=== PATIENT | male | born 1945 | race Caucasian/White ===

== ENCOUNTER 2020-07-02 08:18 | Day surgery (SDC) | payer MEDICARE, OTHER ==
[2020-06-25 15:13] LABS: BASOPHILS # (AUTO) 0.1 X10'3 (0-0.2); BASOPHILS % (AUTO) 0.8 % (0-1); EOSINOPHILS # (AUTO) 0.3 X10'3 (0-0.9); EOSINOPHILS % (AUTO) 3.8 % (0-6); LYMPHOCYTES # (AUTO) 1.9 X10'3 (1.1-4.8); LYMPHOCYTES % (AUTO) 24.7 % (21-51); MEAN CORPUSCULAR HEMOGLOBIN 28.8 PG (27.0-31.0); MEAN CORPUSCULAR HGB CONC 33.4 g/dL (33.0-36.5); MEAN CORPUSCULAR VOLUME 86.3 FL (78-98); MEAN PLATELET VOLUME 9.2 FL (7.4-10.4); MONOCYTES # (AUTO) 0.7 X10'3 (0-0.9); MONOCYTES % (AUTO) 9.1 % (2-12); NEUTROPHILS # (AUTO) 4.8 X10'3 (1.8-7.7); NEUTROPHILS % (AUTO) 61.6 % (42-75); PRE OP HEMATOCRIT 40.7 % (42.0-52.0); PRE OP HEMOGLOBIN 13.6 g/dL (14.0-17.9); PRE OP PLATELET COUNT 183 X10'3 (140-440); RED BLOOD COUNT 4.71 X10'6 (4.70-6.10); RED CELL DISTRIBUTION WIDTH 14.2 % (11.5-14.5)
[2020-06-25 15:28] LABS: ALBUMIN 3.4 G/DL (3.4-5.0); ALKALINE PHOSPHATASE 56 IU/L (46-116); BLOOD UREA NITROGEN 16 MG/DL (7-18); BUN/CREATININE RATIO 15.5 (5.4-32.0); CALCIUM 8.7 MG/DL (8.5-10.1); CHLORIDE 104 MMOL/L (99-107); CREATININE 1.03 MG/DL (0.60-1.10); PRE OP ALT 22 U/L (30-65); PRE OP ANION GAP 8 (8-16); PRE OP AST 25 U/L (10-37); PRE OP BILIRUB, TOTAL 0.4 MG/DL (0.0-1.0); PRE OP GLUCOSE 109 MG/DL (70-104); PRE OP POTASSIUM 3.9 MMOL/L (3.4-5.1); PRE OP SODIUM 139 MMOL/L (135-145); TOTAL CARBON DIOXIDE 27.4 MMOL/L (24-32); TOTAL PROTEIN 6.9 G/DL (6.4-8.2); eGFR 71 ML/MIN
[~2020-07-02] VITALS: Ht 175.3 cm; Wt 96.2 kg
[~2020-07-02 08:18] MED LIST: ACET-1025 PO; ATOR20TA66 PO; BUPIVAcaine/PF 2.5mg/ml (0.25%) 10ml vial ONE; BUPR300T53 PO; CARB15DR EACHEYE; CHOL10008 PO; ESCI10TA PO; LIDOcaine 0.5% (5mg/ml) 50ml vial ONE; LOSA25TA96 PO; MULT-570 PO; SUMA100T16 PO; TRAM50TA2 PO; TRAZ-251 PO; WARF-65 PO; WARF1TAB83 PO; ceFAZolin 2gm in dextrose, iso 50 ML IV ONE; famotidine 20mg tablet PO ONE; ringers solution, lacted 1,000 ML IV SCH
[2020-07-02 08:40] VITALS: BP 127/74
[2020-07-02] MEDS ORDERED: ringers solution, lacted 1,000 ML IV SCH (10:01)
[2020-07-02] MEDS ORDERED: meperidine/PF 25mg/ml syringe IV PRN ×3 (10:05)
[2020-07-02] MEDS ORDERED: morphine 2 MG/ML inj. syringe IV PRN (10:05)
[2020-07-02] MEDS ORDERED: proCHLORperazine 10 MG/2 ml inj IV PRN (10:05)
[2020-07-02] MEDS ORDERED: ondansetron/PF 4mg/2ml inj IV PRN (10:05)
[2020-07-02] MEDS ORDERED: morphine 4 MG/ML inj SYRINge IV PRN (10:05)
[2020-07-02] MEDS ORDERED: fentaNYL/PF 50MCG/1 ML 2ML syringe ONE (10:23)
[2020-07-02] MEDS ORDERED: midazolam 2 mg/2 ml injection ONE (10:23)
[2020-07-02] MEDS ORDERED: propofol inj 20 ML IV ONE (10:25)
[2020-07-02 10:49] VITALS: BP 116/66
--- NOTE | 2020-07-02 10:49 | NUR ---
Received from OR via [facility] , accompanied by Anesthesiologist ANTONINA and report given by Anesthesiolgist. PATIENT WITH WRIST DRESSING TO RIGHT WRIST THAT IS CDI. VSS. DENIES PAIN. + CAP REFILL AND DECREASED SENSATION. Addendum: 07/02/20 at 1057 by Eliot Baez RN, RN Amended: Links added.
[2020-07-02 11:00] VITALS: BP 114/73
[2020-07-02 11:10] VITALS: BP 118/71
[2020-07-02 11:20] VITALS: BP 116/66
--- NOTE | 2020-07-02 11:39 | NUR ---
PATIENT HAS MET ALL DC CRITERIA FOR DC HOME. I HAVE REVIEWED D/C INSTRUCTIONS WITH PATIENT AND FAMILY AND THEY HAVE VERBALIZED UNDERSTANDING, OPPORTUNITY TO ASK QUESTIONS GIVEN AND PATIENT COMFORTABLE WITH DC. IV TAKEN OUT WITHOUT COMPLICATION. OUT VIA WHEELCHAIR WHERE PATIENT WAS TAKEN HOME WITH ALL BELONGINGS. FAMILY GAVE PATIENT TRANSPORT HOME. Addendum: 07/02/20 at 1200 by Eliot Baez RN, RN Amended: Links added.
== END 2020-07-02 11:39 | disposition home or self-care (01) ==
LOC: PAS 08:18
PROVIDERS: ATTEND Orthopaedic Surgery Hand Surgery
DX: G56.01 Carpal tunnel syndrome, right upper limb (principal); I10 Essential (primary) hypertension; F32.9 Major depressive disorder, single episode, unspecified; F41.9 Anxiety disorder, unspecified; G43.909 Migraine, unspecified, not intractable, without status migrainosus; M17.12 Unilateral primary osteoarthritis, left knee; F43.10 Post-traumatic stress disorder, unspecified; Z72.89 Other problems related to lifestyle; Z11.59 Encounter for screening for other viral diseases; Z79.01 Long term (current) use of anticoagulants; Z79.899 Other long term (current) drug therapy; Z98.890 Other specified postprocedural states; Z85.820 Personal history of malignant melanoma of skin; Z87.442 Personal history of urinary calculi; Z87.891 Personal history of nicotine dependence; Z95.2 Presence of prosthetic heart valve; Z86.12 Personal history of poliomyelitis
CPT/HCPCS: 36415; 64721; 80053; 82948; 85025; 85610; 93005; J2001; J2250; J2704; J3010; J3490; U0003; A4215; J7120